=== PATIENT | female | born 1960 | race Caucasian/White ===

== ENCOUNTER → 2020-03-10 10:22 | Outpatient (CLI) | payer BC, SELFPAY ==
--- NOTE | 2020-03-10 10:22 | MM_ITS ---
PROCEDURE: MM DIG SCREENING MAMM BI W/CAD Digital Breast Tomosynthesis Included CLINICAL INDICATION: screening xmg There is no personal or family history of breast cancer. Patient currently is on estrogen. COMPARISON: MG DMSB DIGITAL MAMM-SCREEN BILATERAL from 03/02/2012 MG DMSB DIG MAMM-SCREEN NAHED from 04/18/2013 MG DMSB DIG MAMM-SCREEN NAHED from 06/17/2014 TECHNIQUE: Standard CC and MLO images and 3D Tomosynthesis was obtained. R2 CAD reviewed. FINDINGS: There is a diffusely dense and heterogenic parenchymal pattern. There are no CAD markings. Thony images are most helpful in this type of dense breast parenchyma. Findings are bilateral and symmetrical. There is no new or suspicious lesion in either breast and no suspicious microcalcifications. IMPRESSION: Stable diffusely dense parenchymal pattern BI-RAD Category: 1 Negative FOLLOW-UP: 1YR 1 Year Follow-up (A letter has been sent to the patient regarding results of the study.) Dictated by: Dr. Jersey Molina MD 03/12/2020 10:42 Dr. Jersey Moilna MD in [place] 03/12/2020 10:42
== END ==
PROVIDERS: PCP Nurse Practitioner Family; Visit Provider Nurse Practitioner Obstetrics & Gynecology
DX: Z12.31 Encounter for screening mammogram for malignant neoplasm of breast (principal)
CPT/HCPCS: 77063; 77067

== ENCOUNTER → 2020-05-13 09:21 | Outpatient (CLI) | payer BC, SELFPAY | PROVIDERS: PCP Nurse Practitioner Family; Visit Provider Physician Assistant | DX: Z20.822 Contact with and (suspected) exposure to COVID-19 (principal); U07.1 COVID-19 | CPT/HCPCS: U0003 ==

== ENCOUNTER 2023-08-30 15:05 | Outpatient (CLI) | payer OTHER, SELFPAY ==
--- NOTE | 2023-08-30 15:14 | MM_ITS ---
PROCEDURE INFORMATION: Exam: MG Bilateral Screening 3D Mammography Exam date and time: 08/30/2023 3:04 PM Age: 63 years old Clinical indication: Screening mammogram TECHNIQUE: Imaging protocol: Bilateral Screening tomosynthesis and 2D mammography including computer-aided detection (CAD) when performed. COMPARISON: 1. MG MM DIG SCREENING MAMM BI W/CAD 03/10/2020 10:35 AM 2. MG DMSB DIG MAMM-SCREEN NAHED 06/17/2014 4:53 PM 3. MG DMSB DIG MAMM-SCREEN NAHED 04/18/2013 4:42 PM 4. MG DMSB DIGITAL MAMM-SCREEN BILATERAL 03/02/2012 1:11 PM FINDINGS: MAMMOGRAPHY: Breast composition: The breast is heterogeneously dense, which may obscure small masses. Mass: None. Architectural distortion: No new or suspicious architectural distortion. Calcifications: No new or suspicious calcifications are present Asymmetric density: No new or suspicious asymmetric density is present Skin thickening: None. Axillary adenopathy: None. IMPRESSION: No mammographic evidence of malignancy. Recommend annual screening mammography unless otherwise clinically indicated. ASSESSMENT: BI-RADS category 1: Negative.
== END 2023-08-30 23:59 | disposition home or self-care (01) ==
LOC: RAD 15:07
PROVIDERS: PCP Student in an Organized Health Care Education/Training Program; Visit Provider Nurse Practitioner Obstetrics & Gynecology
DX: Z12.31 Encounter for screening mammogram for malignant neoplasm of breast (principal)
CPT/HCPCS: 77063; 77067